=== PATIENT | female | born 1975 | race American Indian/Alaskan Native ===

== ENCOUNTER 2017-02-17 07:29 | Day surgery (SDC) | payer MEDICARE ==
--- NOTE | 2017-02-17 08:09 | Discharge Summary ---
Providers - Providers Date of discharge: 02/17/17 Attending physician: MAC FARMER Hospitalization Condition: Good Procedures: egd Hospital course: egd Disposition: DISCHARGED TO HOME OR SELFCARE Core Measure Documentation - Palliative Care Palliative Care/ Comfort Measures: Not Applicable - Core Measures Any of the following diagnoses?: none Exam - Physical Exam Narrative exam: unchanged from pre-op Plan Diet: regular Follow up with: MANFRED TOPETE [Other] - 7 Days
--- NOTE | 2017-02-17 08:23 | Operative Report ---
Operative Report Operative Report: OPERATIVE REPORT - EGD DATE 02/17/17 SURGERY: Upper endoscopy. SURGEON: Isaac Baird M.D. EXPLOSIVE EXPERT: n/a PRE OP DX:dyspepsia POST OP DX: small hiatal hernia TYPE OF ANESTHESIA: MAC. ESTIMATED BLOOD LOSS: None. COMPLICATIONS: None. SPECIMENS REMOVED: None. FINDINGS: 1. Small hiatal hernia. 2. Otherwise, normal esophagus, stomach and first portion of duodenum. INDICATIONS:INDICATION FOR PROCEDURE: Patient is a 41-year-old female with a long history of morbid obesity. She is planned to have a weight loss procedure and is here for preoperative planning EGD. PROCEDURE DETAILS: After consent was reviewed, patient was taken back to the operating room where patient was placed in the left lateral decubitus position and a bite block was placed in the mouth. After a time-out was called, MAC anesthesia was initiated. I then passed the endoscope into her oropharynx, into her esophagus, visualized the entire esophagus, which was all within normal limits. I then visualized the stomach and the first portion of the duodenum and there were no abnormalities I could clearly visualize. I then retroflexed the scope in the stomach and visualized the hiatus and I could see a small hiatal hernia. I then desufflated the stomach and removed the endoscope. Patient tolerated procedure well and was transferred to recovery room in good and stable condition.
--- NOTE | 2017-02-17 09:14 | Anesthesia Consultation ---
Anesthesia Consult and Med Hx Date of service: 02/17/17 - Airway Anesthetic Teeth Evaluation: Good ROM Head & Neck: Adequate Mental/Hyoid Distance: Adequate Mallampati Class: Class III Intubation Access Assessment: Possibly Difficult - Pulmonary Exam CTA: Yes - Cardiac Exam Cardiac Exam: RRR - Pre-Operative Health Status ASA Pre-Surgery Classification: ASA3 Proposed Anesthetic Plan: MAC - Additional Comments Anesthesia Medical History Comments: Hypercholesterolemia. Herniated Disc. Spinal Stenosis
[2017-02-17] MEDS ORDERED: DIPRIVAN 10 MG/ML IV ONE ×2 (09:15)
--- NOTE | 2017-02-17 09:15 | Anesthesia Day of Surgery ---
Anesthesia Day of Surgery - Day of Surgery Patient Examined: Yes Patient H&P Reviewed: Yes Patient is NPO: Yes
[2017-02-17] MEDS ORDERED: ZOFRAN ONE (09:48)
[2017-02-17] MEDS ORDERED: ZOFRAN IV ONE (09:50)
[2017-02-17] MEDS ORDERED: NACL 0.9% 1000 ML 1,000 ML IV SCH (10:00)
[2017-02-17 10:14] VITALS: BP 134/73
--- NOTE | 2017-02-17 10:37 | Post Anesthesia Evaluation ---
- Post Anesthesia Evaluation Patient Participated: Yes Airway Patent: Yes Stable Respiratory Function: Yes Nausea/Vomiting: No Temp > 96.8F: Yes Pain Manageable: Yes Adequeate Hydration: Yes Anesthesia Complications: No
[2017-02-17] MEDS ORDERED: XYLOCAINE MPF 2% ONE (11:00)
== END 2017-02-17 07:30 | disposition home or self-care (01) ==
LOC: GIO 07:29
PROVIDERS: ATTEND Surgery
DX: K44.9 Diaphragmatic hernia without obstruction or gangrene (principal); E78.00 Pure hypercholesterolemia, unspecified; Z90.49 Acquired absence of other specified parts of digestive tract; Z98.890 Other specified postprocedural states; Z79.899 Other long term (current) drug therapy; Z88.8 Allergy status to other drugs, medicaments and biological substances; Z83.3 Family history of diabetes mellitus; Z82.49 Family history of ischemic heart disease and other diseases of the circulatory system
CPT/HCPCS: 43235; J2405; J2704; J7030

== ENCOUNTER 2017-06-03 11:00 | Outpatient (CLI) | payer BC, MEDICARE | END 2017-06-03 11:01 | disposition home or self-care (01) | LOC: SLR 11:00 | PROVIDERS: ATTEND Specialist | DX: G47.30 Sleep apnea, unspecified (principal) | CPT/HCPCS: G0399 ==

== ENCOUNTER 2017-08-30 06:29 | Day surgery (SDC) | payer BC, MEDICARE ==
[2017-08-30] MEDS ORDERED: WATER FOR IRRIG STERILE IR ONE (07:08)
[2017-08-30] MEDS ORDERED: DIPRIVAN 10 MG/ML IV ONE (07:51)
[2017-08-30] MEDS ORDERED: NACL 0.9% 1000 ML 1,000 ML IV SCH (08:00)
--- NOTE | 2017-08-30 08:14 | Anesthesia Day of Surgery ---
Anesthesia Day of Surgery - Day of Surgery Patient Examined: Yes Patient H&P Reviewed: Yes Patient is NPO: Yes
--- NOTE | 2017-08-30 08:14 | Anesthesia Consultation ---
Anesthesia Consult and Med Hx Date of service: 08/30/17 - Airway Anesthetic Teeth Evaluation: Good ROM Head & Neck: Adequate Mental/Hyoid Distance: Adequate Mallampati Class: Class III Intubation Access Assessment: Probably Good - Pulmonary Exam CTA: Yes - Cardiac Exam Cardiac Exam: RRR - Pre-Operative Health Status ASA Pre-Surgery Classification: ASA3 Proposed Anesthetic Plan: MAC - Pulmonary Hx Smoking: No Hx Sleep Apnea: No - Cardiovascular System Hx Hypertension: No (high cholesterol) - Central Nervous System Hx Neuromuscular Disorder: Yes (hx of scoliosis, rods removed, spinal stenosis) Hx Back Pain: Yes (back sx and hardwares) - Other Systems Hx Obesity: Yes - Additional Comments Anesthesia Medical History Comments: NAC
--- NOTE | 2017-08-30 08:43 | Discharge Summary ---
Providers - Providers Attending physician: HECTOR GORE Primary care physician: MANFRED TOPETE MD Hospitalization Hospital course: 41 y.o. F presented for an EGD for upcoming bariatric surgery. She tolerated the procedure well. Disposition: DC-01 TO HOME OR SELFCARE Core Measure Documentation - Palliative Care Palliative Care/ Comfort Measures: Not Applicable - Core Measures Any of the following diagnoses?: none Exam - Physical Exam Narrative exam: no change from prior - Constitutional Vitals: Temp Pulse Resp BP Pulse Ox 98.3 F 79 16 131/81 98 08/30/17 07:45 08/30/17 07:45 08/30/17 07:45 08/30/17 07:45 08/30/17 07:45 Plan Additional Instructions: follow up for surgery Follow up with: MANFRED TOPETE MD [Primary Care Provider] - 7 Days
--- NOTE | 2017-08-30 08:43 | Operative Report ---
Operative Report Operative Report: OPERATIVE REPORT - EGD DATE 08/30/17 SURGERY: Upper endoscopy. SURGEON: Dr. Dalton FILM WAXER: Migdalia Stevenson DO PRE OP DX: dyspepsia POST OP DX: moderate hiatal hernia TYPE OF ANESTHESIA: MAC. ESTIMATED BLOOD LOSS: None. COMPLICATIONS: None. SPECIMENS REMOVED: None. FINDINGS: 1. Moderate size hiatal hernia. 2. Otherwise, normal esophagus, stomach and first portion of duodenum. INDICATIONS:INDICATION FOR PROCEDURE: Patient is a 41year-old female with a long history of morbid obesity. She is planned to have a weight loss procedure and is here for preoperative planning EGD. PROCEDURE DETAILS: After consent was reviewed, patient was taken back to the operating room where patient was placed in the left lateral decubitus position and a bite block was placed in the mouth. After a time-out was called, MAC anesthesia was initiated. I then passed the endoscope into her oropharynx, into her esophagus, visualized the entire esophagus, which was all within normal limits. I then visualized the stomach and the first portion of the duodenum and there were no abnormalities I could clearly visualize. I then retroflexed the scope in the stomach and visualized the hiatus and I could see a moderate size hiatal hernia. I then desufflated the stomach and removed the endoscope. Patient tolerated procedure well and was transferred to recovery room in good and stable condition.
--- NOTE | 2017-08-30 09:23 | Post Anesthesia Evaluation ---
- Post Anesthesia Evaluation Patient Participated: Yes Airway Patent: Yes Stable Respiratory Function: Yes Nausea/Vomiting: No Temp > 96.8F: Yes Pain Manageable: Yes Adequeate Hydration: Yes Anesthesia Complications: No Block Receding Appropriately: Not Applicable Patient on Ventilator: No
[2017-08-30 10:09] VITALS: BP 118/75
== END 2017-08-30 06:30 | disposition home or self-care (01) ==
LOC: GIO 06:29
PROVIDERS: ATTEND Specialist
DX: K30 Functional dyspepsia (principal); K44.9 Diaphragmatic hernia without obstruction or gangrene; K58.0 Irritable bowel syndrome with diarrhea; G47.00 Insomnia, unspecified; E78.00 Pure hypercholesterolemia, unspecified; E66.01 Morbid (severe) obesity due to excess calories; Z98.51 Tubal ligation status; Z68.41 Body mass index [BMI] 40.0-44.9, adult; Z79.899 Other long term (current) drug therapy; Z98.890 Other specified postprocedural states; Z88.8 Allergy status to other drugs, medicaments and biological substances; Z91.048 Other nonmedicinal substance allergy status
CPT/HCPCS: 43235; J2704; J7030

== ENCOUNTER 2017-09-06 06:48 | Inpatient (IN) | payer BC, MEDICARE ==
--- NOTE | 2017-09-01 11:00 | Anesthesia Consultation ---
Anesthesia Consult and Med Hx Date of service: 09/01/17 - Airway Anesthetic Teeth Evaluation: Good ROM Head & Neck: Adequate Mental/Hyoid Distance: Adequate Mallampati Class: Class II Intubation Access Assessment: Probably Good - Pulmonary Exam CTA: Yes - Cardiac Exam Cardiac Exam: RRR - Pre-Operative Health Status ASA Pre-Surgery Classification: ASA3 Proposed Anesthetic Plan: General - Pulmonary Hx Smoking: No Hx Sleep Apnea: No (r/o) - Cardiovascular System Hx Hypertension: No (high cholesterol) - Central Nervous System Hx Neuromuscular Disorder: Yes (hx of scoliosis, rods removed, spinal stenosis) Hx Back Pain: Yes Hx Psychiatric Problems: No - Other Systems Hx Alcohol Use: No Hx Substance Use: No Hx Cancer: No Hx Obesity: Yes
[2017-09-01 11:04] LABS: Basophils % (Auto) 1.3 % (0.0-1.8); Eosinophils % (Auto) 2.3 % (0.0-4.3); Hematocrit 37.4 % (30.3-42.9); Hemoglobin 12.2 gm/dl (10.1-14.3); Mean Corpuscular HGB Conc 33 % (30-34); Mean Corpuscular Hemoglobin 28 pg (28-32); Mean Corpuscular Volume 87 fl (79-97); Platelet Count 257 K/mm3 (140-440); Red Blood Count 4.29 M/mm3 (3.65-5.03); Red Cell Distribution Width 14.2 % (13.2-15.2); White Blood Count 6.3 K/mm3 (4.5-11.0)
[2017-09-01 11:18] LABS: Alanine Aminotransferase 25 units/L (7-56); Albumin 4.4 g/dL (3.9-5); Albumin/Globulin Ratio 1.3 %; Alkaline Phosphatase 77 units/L (35-129); Anion Gap 19 mmol/L; BUN/Creatinine Ratio 20; Blood Urea Nitrogen 12 mg/dL (7-17); Calcium 9.1 mg/dL (8.4-10.2); Carbon Dioxide 24 mmol/L (22-30); Glucose 144 mg/dL (65-100); Potassium 3.9 mmol/L (3.6-5.0); Sodium 137 mmol/L (137-145); Total Protein 7.9 g/dL (6.3-8.2)
[~2017-09-06 06:48] MED LIST: ANCEF/STERILE WATER 2 GM/20 ML 2 GM/20 ML SYRINGE IV NR; APRESOLINE IV PRN; FLAGYL 500 MG/100 ML 500 MG/100 ML BAG IV NR; LACTATED RINGERS 1,000 ML IV SCH; LOVENOX SUB-Q NR; MYLICON PO PRN; NORCO PO PRN; REGLAN IV PRN; TRANSDERM-SCOP TD SCH; ZOFRAN IV PRN
[2017-09-06] MEDS ORDERED: PEPCID IV NR (07:00)
[2017-09-06] MEDS ORDERED: VERSED IV NR (07:00)
--- NOTE | 2017-09-06 11:47 | Anesthesia Day of Surgery ---
Anesthesia Day of Surgery - Day of Surgery Patient Examined: Yes Patient H&P Reviewed: Yes Patient is NPO: Yes
[2017-09-06] MEDS: LACTATED RINGERS 1,000 ML IV SCH ×2 (12:34→22:22)
[2017-09-06] MEDS ORDERED: FLAGYL 500 MG/100 ML 500 MG/100 ML BAG IV NR (13:00)
[2017-09-06] MEDS ORDERED: ANCEF/STERILE WATER 2 GM/20 ML 2 GM/20 ML SYRINGE IV NR (13:00)
[2017-09-06 13:12] LABS: Bilirubin,Urine NEG (Negative); Blood,Urine NEG (Negative); Ketones,Urine NEG (Negative); Leukocyte Esterase,Urine NEG (Negative); Nitrite,Urine NEG (Negative); Protein,Urine <15 mg/dL mg/dL (Negative); WBC,Urine < 1.0 /HPF (0.0-6.0)
[2017-09-06] MEDS ORDERED: MARCAINE 0.5% 30 ML INFILTRATI ONE (15:12)
[2017-09-06] MEDS ORDERED: XYLOCAINE 1% 20 mL ONE (15:12)
[2017-09-06] MEDS ORDERED: DECADRON ONE (16:55)
[2017-09-06] MEDS ORDERED: ROBINUL ONE ×2 (16:55)
[2017-09-06] MEDS ORDERED: ZOFRAN ONE (16:55)
[2017-09-06] MEDS ORDERED: NEOSTIGMINE ONE (16:55)
[2017-09-06] MEDS ORDERED: XYLOCAINE MPF 2% ONE (16:55)
[2017-09-06] MEDS ORDERED: ZEMURON IV ONE (16:55)
[2017-09-06] MEDS ORDERED: DIPRIVAN 10 MG/ML IV ONE (16:57)
[2017-09-06] MEDS ORDERED: SUBLIMAZE ONE (16:57)
[2017-09-06] MEDS ORDERED: NACL 0.9% IR ONE (17:03)
[2017-09-06] MEDS ORDERED: MARCAINE 0.5% INFILTRATI ONE (17:03)
[2017-09-06] MEDS ORDERED: XYLOCAINE 1% 20 mL INFILTRATI ONE (17:03)
[2017-09-06] MEDS ORDERED: LACTATED RINGERS 1,000 ML ONE (18:59)
[2017-09-06] MEDS ORDERED: DILAUDID ONE (19:13)
--- NOTE | 2017-09-06 19:30 | Operative Report ---
Operative Report Operative Report: Operative Report DATE OF PROCEDURE: 09/06/17 PREOPERATIVE DIAGNOSES: Morbid obesity, hiatal hernia POSTOPERATIVE DIAGNOSES: 1.same as pre-op SURGEON: Dr. Dalton PHYSICAL EDUCATION SPECIALIST: Miki Velez DO PROCEDURE: 1. laparoscopic sleeve gastrectomy 2. laparoscopic hiatal hernia repair ANESTHESIA: General. ESTIMATED BLOOD LOSS: <5 mL. COMPLICATIONS: None. SPECIMEN: Partial gastrectomy. FINDINGS: 1. hiatal hernia INDICATION FOR PROCEDURE: Patient is 41 year-old F with a long history of morbid obesity. The patient has tried multiple efforts at weight loss without financial aid manager success. Pt is here today for sleeve gastrectomy. PROCEDURE IN DETAIL: After consent was reviewed, patient was taken back to the operating room, where patient was placed supine on the bed with both arms out. The patient's legs were doubly strapped to the bed. Patient had a foot board in place. Patient had a body warmer placed by anesthesia. Patient was then prepped and draped in normal sterile surgical fashion. After a time-out was called, I made a stab incision in the umbilicus and placed a Veress needle through this incision and insufflated the abdomen to 18 mmHg pressure. Once the abdomen was adequately insuflated I widened the umbical incision were the veress had been placed and inserted a 15mm trocar. I then placed a 45-degree scope through this port and inspected the abdomen. There was no injury on entry of the abdomen. I then placed two 5-mm ports in the right upper quadrant, one along the anterior axillary line and 1 subxiphoid below the costovertebral angle. I then placed left upper quadrant port along the anterior axillary line in a similar fashion. I then placed the liver retractor through the subxiphoid port and placed the patient in full reverse Trendelenburg. The right and left crura were skeletonized accentuating a small hiatal hernia. An anterior cruraplasty was perfromed with a figure-of-8 stitch using [id number] with 0 ethibond suture to reapproximate the crura. I then identified the pylorus and then counted off 6cm from the pylorus. I then used a LigaSure cutting device to enter into the lesser sac. At that point and then I took down the short gastrics all the way up to the left ese. Then I had anesthesia pass down a 40 [place] bougie along the lesser curvature of the stomach. I made sure everything else was out of the abdomen except the bougie. I then created my gastric sleeve using a 60-mm laparoscopic stapler. . The sleeve looked good without any twisting or torsion. I then had anesthesia to remove the bougie. Hemostasis was obtained along the staple line. I then used Tiseel along the entirety of the staple line and some on the liver. I then removed liver grasper and took it off the field. I then removed the stomach through the 15-mm umbilcal port. I then closed that fascia with a #1 PDS in a [id number]-[id number] fashion using a Mathew-Aj. I then desufflated the abdomen and then removed all port sites. I then closed the incisions with 4-0 Monocryl in subcuticular fashion. I then dressed the wounds with steristrips, gauze and tegaderms. Patient tolerated the procedure well and was transferred to recovery room in good and stable condition
[2017-09-06] MEDS: MORPHINE IV PRN ×4 (19:54→21:10)
--- NOTE | 2017-09-06 20:15 | Post Anesthesia Evaluation ---
- Post Anesthesia Evaluation Patient Participated: Yes Airway Patent: Yes Stable Respiratory Function: Yes Temp > 96.8F: Yes Pain Manageable: Yes Adequeate Hydration: Yes Anesthesia Complications: No Block Receding Appropriately: Not Applicable
[2017-09-06] MEDS ORDERED: REGLAN IV PRN (20:17)
[2017-09-06] MEDS ORDERED: DESYREL PO SCH (22:00)
[2017-09-06] MEDS ORDERED: FLEXERIL PO SCH (22:00)
[2017-09-07] MEDS: MORPHINE IV PRN ×2 (01:44→10:39)
[2017-09-07 06:32] LABS: Basophils % (Auto) 0.1 % (0.0-1.8); Hematocrit 37.9 % (30.3-42.9); Hemoglobin 12.1 gm/dl (10.1-14.3); Mean Corpuscular HGB Conc 32 % (30-34); Mean Corpuscular Hemoglobin 28 pg (28-32); Mean Corpuscular Volume 88 fl (79-97); Platelet Count 280 K/mm3 (140-440); Red Blood Count 4.33 M/mm3 (3.65-5.03); Red Cell Distribution Width 14.6 % (13.2-15.2); White Blood Count 13.1 K/mm3 (4.5-11.0)
[2017-09-07 06:47] LABS: Alanine Aminotransferase 42 units/L (7-56); Albumin 4.3 g/dL (3.9-5); Albumin/Globulin Ratio 1.3 %; Alkaline Phosphatase 81 units/L (35-129); Anion Gap 18 mmol/L; BUN/Creatinine Ratio 13; Blood Urea Nitrogen 8 mg/dL (7-17); Carbon Dioxide 26 mmol/L (22-30); Chloride 96.9 mmol/L (98-107); Glucose 178 mg/dL (65-100); Potassium 4.7 mmol/L (3.6-5.0); Sodium 136 mmol/L (137-145); Total Protein 7.7 g/dL (6.3-8.2)
--- NOTE | 2017-09-07 10:19 | Progress Note ---
Assessment and Plan S/P Laprascopic Sleeve Gastrectomy POD #1 - Continue clear liquids and daily protein requirements of 60g - Maintain adequate water intake 64oz daily - Continue ambulation - Incentive Spirometry use every hour - Keep incisional wounds clean and dry - F/u wound check - D/C home Subjective Narrative: No acute events overnight. Pt complains of pain in abdominal region with overall tenderness. Reports mild nausea, no episodes of vomiting. Pt has been ambulating every few hours since her surgery. Pt was able to consume some liquids this morning but became nauseous. Denies BM or flatus. Objective Vital Signs - 12hr 09/07/17 09/07/17 09/07/17 01:00 01:05 04:08 Temperature 98.8 F 98.5 F Pulse Rate 71 Respiratory 18 18 20 Rate Blood Pressure 130/71 135/73 O2 Sat by Pulse Oximetry 09/07/17 09/07/17 08:33 08:45 Temperature 99.1 F Pulse Rate 49 L Respiratory 18 Rate Blood Pressure 141/80 O2 Sat by Pulse 96 100 Oximetry - General physical appearance well developed, well nourished, no distress, obese - Respiratory normal expansion, normal respiratory effort, clear to auscultation - Abdomen soft, tender (incisional tendernss), bowel sounds normal, other (wounds clean and dry) - Labs 09/07/17 05:14 09/07/17 05:14 Diabetes panel 09/07/17 Range/Units 05:14 Sodium 136 L (137-145) mmol/L Potassium 4.7 (3.6-5.0) mmol/L Chloride 96.9 L (98-107) mmol/L Carbon Dioxide 26 (22-30) mmol/L BUN 8 (7-17) mg/dL Creatinine 0.6 L (0.7-1.2) mg/dL Glucose 178 H (65-100) mg/dL Calcium 9.0 (8.4-10.2) mg/dL AST 43 H (5-40) units/L ALT 42 (7-56) units/L Alkaline Phosphatase 81 (35-129) units/L Total Protein 7.7 (6.3-8.2) g/dL Albumin 4.3 (3.9-5) g/dL Calcium panel 09/07/17 Range/Units 05:14 Calcium 9.0 (8.4-10.2) mg/dL Albumin 4.3 (3.9-5) g/dL Pituitary panel 09/07/17 Range/Units 05:14 Sodium 136 L (137-145) mmol/L Potassium 4.7 (3.6-5.0) mmol/L Chloride 96.9 L (98-107) mmol/L Carbon Dioxide 26 (22-30) mmol/L BUN 8 (7-17) mg/dL Creatinine 0.6 L (0.7-1.2) mg/dL Glucose 178 H (65-100) mg/dL Calcium 9.0 (8.4-10.2) mg/dL Adrenal panel 09/07/17 Range/Units 05:14 Sodium 136 L (137-145) mmol/L Potassium 4.7 (3.6-5.0) mmol/L Chloride 96.9 L (98-107) mmol/L Carbon Dioxide 26 (22-30) mmol/L BUN 8 (7-17) mg/dL Creatinine 0.6 L (0.7-1.2) mg/dL Glucose 178 H (65-100) mg/dL Calcium 9.0 (8.4-10.2) mg/dL Total Bilirubin 1.00 (0.1-1.2) mg/dL AST 43 H (5-40) units/L ALT 42 (7-56) units/L Alkaline Phosphatase 81 (35-129) units/L Total Protein 7.7 (6.3-8.2) g/dL Albumin 4.3 (3.9-5) g/dL
[2017-09-07] MEDS: LOVENOX SUB-Q SCH ×2 (10:39→11:35)
[2017-09-07] MEDS: LACTATED RINGERS 1,000 ML IV SCH (12:49)
--- NOTE | 2017-09-07 13:41 | Discharge Summary ---
Providers - Providers Date of Admission: 09/06/17 10:36 Date of discharge: 09/07/17 Attending physician: HECTOR GORE Primary care physician: MANFRED TOPETE MD Hospitalization Reason for admission: Bariatric Surgery Condition: Good Procedures: Laprascopic Sleeve Gastrectomy Hospital course: 41 y.o. F who was admitted for a lap sleeve gastrectomy. Pt tolerated procedure well. On POD 1 she tolerated clears without n/v. Her pain was controlled. She ambulated well. She was discharged on POD 1 without issues. Disposition: DC-01 TO HOME OR SELFCARE Core Measure Documentation - Palliative Care Palliative Care/ Comfort Measures: Not Applicable - Core Measures Any of the following diagnoses?: none Exam - Constitutional Vitals: Temp Pulse Resp BP Pulse Ox 99.0 F 62 18 135/77 100 09/07/17 13:06 09/07/17 13:06 09/07/17 13:06 09/07/17 13:06 09/07/17 13:06 General appearance: Present: no acute distress, well-nourished - EENT ENT: hearing intact - Neck Neck: Present: normal ROM - Respiratory Respiratory effort: normal - Cardiovascular Rhythm: regular Heart Sounds: Present: S1 & S2 - Abdominal General gastrointestinal: Present: soft, tender (incisional tenderness), normal bowel sounds, other (incisions dressings- minimal blood stained. ) Plan Activity: other (No heavy lifting over 15lbs for 6 weeks.) Weight Bearing Status: Full Weight Bearing Diet: clear liquids, low carbohydrate Wound: keep clean and dry Additional Instructions: F/u for wound check Follow up with: MANFRED TOPETE MD [Primary Care Provider] - 7 Days
[2017-09-07 16:50] VITALS: BP 149/85
== END 2017-09-07 17:30 | disposition home or self-care (01) | DRG 327 ==
LOC: 3A 10:36 → 3B-SURG 20:06
PROVIDERS: ADMIT Specialist; ATTEND Specialist
PROC: 0DB64Z3 Excision of Stomach, Percutaneous Endoscopic Approach, Vertical (ICD-10-PCS; principal; 2017-09-06)
PROC: 0BQT4ZZ Repair Diaphragm, Percutaneous Endoscopic Approach (ICD-10-PCS; 2017-09-06)
DX: K44.9 Diaphragmatic hernia without obstruction or gangrene (principal); Z68.41 Body mass index [BMI] 40.0-44.9, adult; E66.01 Morbid (severe) obesity due to excess calories; Z71.3 Dietary counseling and surveillance; M54.9 Dorsalgia, unspecified
CPT/HCPCS: 36415; 80053; 81001; 85025; 88307; 94760; C9250; J0690; J1100; J1170; J1650; J2250; J2270; J2405; J2704; J2710; J2765; J3010; J7120